=== PATIENT | female | born 1985 | race African-American/Black ===

== ENCOUNTER 2017-11-21 12:48 | Emergency (ER) | payer OTHER ==
[2017-11-21 13:20] VITALS: BP 123/64; PULSE 70; TEMP 97.5; BMI 32.1
--- NOTE | 2017-11-21 13:37 | PDOC ---
History of Present Illness - General Chief Complaint: Headache Stated Complaint: MIGRAINE HEADACHE Time Seen by Provider: 11/21/17 13:24 History Source: Patient Exam Limitations: No Limitations - History of Present Illness Initial Comments: 11/21/17 13:58 Patient is here with complaints of recurrent headache pain primarily on the left side but feels across frontal area and temporal area. States has suffered from many years with recurrent headaches, has never seen a neurologist nor has never been diagnosed with any specific type of headache including migraines. Patient states mother suffers from migraine headaches. Denies numbness or tingling to hands or feet, denies any aura or any neurologic changes. States rest in quiet generally helps resolve this pain. No fevers, nausea vomiting diarrhea or constipation, has had no URI symptoms recently. 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 denies: loss of consciousness, muscle spasms, nausea/vomiting, numbness in legs/feet, paresthesia, ringing in ears, tingling in legs/feet, trouble walking Past History - Travel Traveled outside of the country in the last 30 days: No Close contact w/someone who was outside of country & ill: No - Past Medical History Allergies/Adverse Reactions: Allergies Allergy/AdvReac Type Severity Reaction Status Date / Time No Known Allergies Allergy Verified 11/21/17 13:20 Home Medications: Ambulatory Orders Cyclobenzaprine HCl [Flexeril 10 mg] 10 mg PO BID PRN #14 tablet 11/21/17 Estradiol [Estrogel] 50 gm TD ASDIR 11/21/17 Ibuprofen [Motrin -] 400 mg PO QID PRN #28 tablet 11/21/17 Leuprolide Acetate [Lupron -] 1 mg SQ ASDIR 11/21/17 COPD: No Other medical history: migraines years ago - Suicide/Smoking/Psychosocial Hx Smoking History: Never smoked Review of Systems - Review of Systems Able to Perform ROS?: Yes Is the patient limited Spanish proficient: Yes Constitutional: Yes: Symptoms Reported, See HPI, Malaise. No: Fever HEENTM: Yes: Symptoms Reported, See HPI, Nose Congestion Respiratory: No: Symptoms reported Musculoskeletal: Yes: See HPI. No: Symptoms Reported Integumentary: Yes: See HPI. No: Symptoms Reported Neurological: Yes: Symptoms reported, See HPI, Headache. No: Numbness, Paresthesia, Tingling, Weakness Psychiatric: No: Anxiety, Depression All Other Systems: Reviewed and Negative *Physical Exam - Vital Signs Last Vital Signs Temp Pulse Resp BP Pulse Ox 97.5 F L 70 18 123/64 98 11/21/17 13:17 11/21/17 13:17 11/21/17 13:17 11/21/17 13:17 11/21/17 13:17 - Physical Exam General Appearance: Yes: Nourished, Appropriately Dressed, Apparent Distress, Mild Distress HEENT: positive: TMs Normal (congested), Rhinorrhea, Sinus Tenderness Neck: positive: Tender, Supple, Other (tense tight musculature to the paravertebral spinous muscles with some mild reproduced pain at pressure point of occiput and insertion of scalp musculature. Palpation of scalp and frontal area reproduces same headache type pain.). negative: Lymphadenopathy (R), Lymphadenopathy (L) Respiratory/Chest: positive: Lungs Clear, Normal Breath Sounds Gastrointestinal/Abdominal: positive: Soft. 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 NML intact, Fully Oriented, Alert, Normal Mood/ Affect, Normal Response, Motor Strength 5/5 Progress Note - Progress Note Progress Note: tension headache vs Migraine / will treat with NSAIDs and cyclobenzaprine and discussed with patient need for evaluation by neurology for appropriate diagnosis and further testing as required *DC/Admit/Observation/Transfer Diagnosis at time of Disposition: Headache Qualifiers: Headache type: tension-type Headache chronicity pattern: episodic headache Intractability: not intractable Qualified Code(s): G44.219 - Episodic tension- type headache, not intractable - Discharge Dispostion Disposition: HOME Condition at time of disposition: Stable Admit: No - Referrals Referrals: Nando Logan MD [Staff Physician] - - Patient Instructions Printed Discharge Instructions: DI for Hormonal and Tension Headaches Additional Instructions: Rest, no heavy lifting or exercise until pain is resolved Hot soaks to neck and low back as often as possible/hot showers or Jacuzzis Continue ibuprofen 2-200 mg tablets every 6 hours for the next 3 days then as needed for pain and swelling Cyclobenzaprine 1-10mg every 8 hours as needed for spasm Call for appointment with neurology this week for further evaluation and possible diagnosis of specific headache or other pathology and appropriate treatments If not significant improvement within 24 hours with medication and rest regime, followup with private physician for change in medications and /or therapy. - Post Discharge Activity
[2017-11-21] MEDS ORDERED: KETOROLAC TROMETHAMINE 60 MG/2 ML VIAL IM ONE (13:58)
[2017-11-21] MEDS ORDERED: KETOROLAC TROMETHAMINE 60 MG/2 ML VIAL ONE (14:05)
== END 2017-11-21 14:24 | disposition home or self-care (01) ==
LOC: JERFT 12:48 → JER 12:48 → JERFT 14:24
PROC: 3E0233Z Introduction of Anti-inflammatory into Muscle, Percutaneous Approach (ICD-10-PCS; principal; 2017-11-21)
DX: G44.219 Episodic tension-type headache, not intractable (principal)
CPT/HCPCS: 96372; 99281-25